=== PATIENT | female | born 1960 | race Caucasian/White ===

== ENCOUNTER 2019-01-05 14:18 | Emergency (ER) | payer MEDICAID ==
[2019-01-05] MEDS ORDERED: Ondansetron 4 MG/2 ML SDV IVPUSH ONE (14:56)
[2019-01-05] MEDS ORDERED: Sodium Chloride 0.9% 10 ML Syringe FLUSH PRN (14:56)
[2019-01-05] MEDS ORDERED: Sodium Chloride 0.9% 1,000 ML IV SCH (15:00)
--- NOTE | 2019-01-05 15:37 | CT ---
Head CT Technique: Multiple axial sections through the brain were obtained. Intravenous contrast was not utilized. Comparison: No prior intracranial imaging. Findings: Ventricles along with basal cisterns and sulci over the convexities are within normal limits for the patient's age. No abnormal parenchymal densities are seen. No evidence of intracranial hemorrhage. No midline shift or mass effect is seen. Bone window settings were reviewed which show no acute calvarial abnormality. Mucosal thickening is seen within the maxillary sinuses with air-fluid level suggesting possibility of acute sinusitis. Impression: 1. Possible acute sinusitis within the maxillary sinuses. 2. No acute intracranial abnormality is appreciated. Diagnostic code #3
--- NOTE | 2019-01-05 15:41 | MR ---
MR angiogram Technique: MR angiogram study was obtained centered to the [place]. Multiple MIP images were obtained in multiple projections. Findings: Distal internal carotid arteries are patent. Basilar artery is patent. Normal appearance of the middle cerebral arteries, anterior cerebral arteries and posterior cerebral arteries are seen. No focal occlusion or focal narrowing is seen. No aneurysm is identified. Impression: 1. No abnormality is appreciated on MR angiogram of the brain centered to the [place]. Diagnostic code #1
--- NOTE | 2019-01-05 15:43 | MR ---
MRI brain Technique: T1 sagittal; T2, T2 FLAIR, T1 and diffusion axial Comparison: Prior head CT study performed earlier on same day (2:54 PM). Findings: Ventricles along with basal cisterns and sulci over the convexities are within normal limits. Paranasal sinus disease is again noted within both maxillary sinuses as described on head CT exam. Small areas of increased signal scattered within subcortical white matter most likely due to minimal small vessel ischemic demyelination change. No other abnormal signal is seen within the brain parenchyma. No midline shift or mass effect is seen. No acute diffusion abnormalities are seen. Impression: 1. Probable mild small vessel ischemic demyelination change. 2. No acute diffusion abnormalities are seen. 3. Paranasal sinus disease is again noted. Diagnostic code #2
[2019-01-05] MEDS ORDERED: methylPREDNISolone Sodium Succinate 125 MG/2 ML SDV IVPUSH ONE (16:30)
[2019-01-05] MEDS ORDERED: Meclizine 12.5 MG Tab PO ONE (16:32)
--- NOTE | 2019-01-05 16:46 | EDM.PDOC ---
ED HPI GENERAL MEDICAL PROBLEM - General Chief Complaint: Respiratory Problem Stated Complaint: HIGH FEVER,VOMITING,DIZZY Time Seen by Provider: 01/05/19 14:37 Source of Information: Reports: Patient, Family, RN Notes Reviewed (Daughter) - History of Present Illness INITIAL COMMENTS - FREE TEXT/NARRATIVE: 58-year-old female has been brought in by daughter with severe vertigo, nausea and possible speech difficulty. This all started about 11:30 AM today for about 3 hours prior to arrival. She has been ill for the past couple of weeks with progressive cough. Cough initially was nonproductive and over the past week or so has become productive of yellowish green phlegm. She does have some mild nasal and sinus congestion. She also today does have headache. No major neck discomfort at this time. She is not aware of fever or chills. After the vertigo hit she did walk to the bathroom, became very nauseated and then became lightheaded, more dizzy and "sweaty". Her daughter states that her speech also became "slurred and different from baseline". She has not had any word finding difficulty. Also there is been no focal weakness. His called as a stroke alert on patient arrival to ED due to above mentioned symptoms and uncertainty of etiology. She does have history of a lot of back problems with multiple prior back surgeries, history of "back infection". She does not have history of diabetes, hypertension, coronary disease or previous stroke or TIA. Last known time of normal wellness 11:30 about 3 hours [employer]. - Related Data Allergies Allergy/AdvReac Type Severity Reaction Status Date / Time acetaminophen [From Percocet] Allergy Swelling Verified 01/05/19 16:20 cefazolin [From Ancef] Allergy Rash Verified 01/05/19 16:20 metronidazole [From Flagyl] Allergy Nausea Verified 01/05/19 16:20 oxycodone [From Percocet] Allergy Swelling Verified 01/05/19 16:20 Home Meds: Home Meds Acyclovir 200 mg PO BID 01/05/19 [History] Cyclobenzaprine [Flexeril] 10 mg PO TID 01/05/19 [History] Denosumab [Prolia] 1 injection IM ASDIRECTED 01/05/19 [History] Doxycycline [Vibramycin] 100 mg PO BID #14 tab 01/05/19 [Rx] Gabapentin [Neurontin] 800 mg PO TID 01/05/19 [History] Past Medical History HEENT History: Reports: Impaired Vision Other HEENT History: reading glasses Cardiovascular History: Reports: High Cholesterol [employer] History: Reports: Psychiatric History: Reports: Depression - Infectious Disease History Infectious Disease History: Reports: Hepatitis C - Past Surgical History HEENT Surgical History: Reports: Adenoidectomy Neurological Surgical History: Reports: Spinal Fusion Other Neurological Surgeries/Procedures: C4-S1 Social & Family History - Tobacco Use Smoking Status *Q: Former Smoker Used Tobacco, but Quit: Yes Month/Year Tobacco Last Used: a couple weeks ago quit - Caffeine Use Caffeine Use: Reports: Soda, Tea - Recreational Drug Use Recreational Drug Use: No ED ROS GENERAL - Review of Systems Review Of Systems: See Below Constitutional: Reports: Diaphoresis. Denies: Fever, Chills HEENT: Reports: Rhinitis (mild), Sinus Problem (she has had sinus congestion for several weeks and drainage). Denies: Throat Pain Respiratory: Denies: Shortness of Breath, Pleuritic Chest Pain Cardiovascular: Denies: Chest Pain GI/Abdominal: Reports: Nausea, Vomiting. Denies: Abdominal Pain Musculoskeletal: Reports: Neck Pain (mild chronic), Back Pain (chronic). Denies : Shoulder Pain, Arm Pain Skin: Denies: Rash Neurological: Reports: Trouble Speaking (daughter states speech is mildly slurred and "slower than usual"). Denies: Numbness, Tingling, Weakness ED EXAM, GENERAL - Physical Exam Exam: See Below General Appearance: Alert, Anxious (mild) Eye Exam: Bilateral Eye: PERRL, Other (very mild horizontal nystagmus) Ears: Normal External Exam, Normal Canal, Normal TMs Nose: Normal Inspection Throat/Mouth: Normal Inspection, Normal Oropharynx Head: Atraumatic. No: Facial Swelling Neck: Supple, Non-Tender Respiratory/Chest: No Respiratory Distress, Lungs Clear, Normal Breath Sounds Cardiovascular: Regular Rate, Rhythm GI/Abdominal: Soft, Non-Tender Back Exam: No: CVA Tenderness (L), CVA Tenderness (R) Extremities: Normal Inspection, Normal Range of Motion, Non-Tender Neurological: Alert, Oriented, No Motor/Sensory Deficits, Other (no facial droop , speech is mild slow but words are articulate and appropriate) Skin Exam: Warm, Dry, Normal Color, No Rash EKG INTERPRETATION EKG Date: 01/05/19 Rhythm: NSR [place]: Normal P-Wave: Present QRS: Normal ST-T: Normal Course - Vital Signs Last Recorded V/S: Last Vital Signs Temp 96.7 F 01/05/19 14:31 Pulse 63 01/05/19 14:31 Resp 18 01/05/19 14:31 BP 142/79 H 01/05/19 14:31 Pulse Ox 97 01/05/19 14:31 - Orders/Labs/Meds Orders: Active Orders 24 hr Category Date Time Status EKG 12 Lead [EKG Documentation Completion] [RC] STAT Care 01/05/19 14:55 Active Peripheral IV Care [RC] . DIRECTED Care 01/05/19 14:56 Active Peripheral IV Insertion Adult [OM.PC] Stat Oth 01/05/19 14:56 Ordered Labs: Laboratory Tests 01/05/19 01/05/19 01/05/19 Range/Units 14:40 14:55 14:55 WBC 11.58 H (3.98-10.04) K/mm3 RBC 4.75 (3.98-5.22) M/mm3 Hgb 13.9 (11.2-15.7) gm/dl Hct 42.6 (34.1-44.9) % MCV 89.7 (79.4-94.8) fl MCH 29.3 (25.6-32.2) pg MCHC 32.6 (32.2-35.5) g/dl RDW Std Deviation 51.6 H (36.4-46.3) fL Plt Count 270 (182-369) K/mm3 MPV 9.8 (9.4-12.3) fl Neut % (Auto) 81.7 H (34.0-71.1) % Lymph % (Auto) 9.8 L (19.3-51.7) % [place] % (Auto) 6.8 (4.7-12.5) % Eos % (Auto) 1.1 (0.7-5.8) Baso % (Auto) 0.3 (0.1-1.2) % Neut # (Auto) 9.47 H (1.56-6.13) K/mm3 Lymph # (Auto) 1.13 L (1.18-3.74) K/mm3 [place]enson # (Auto) 0.79 H (0.24-0.36) K/mm3 Eos # (Auto) 0.13 (0.04-0.36) K/mm3 Baso # (Auto) 0.03 (0.01-0.08) K/mm3 Manual Slide Review Abnormal smear Sodium 142 (136-145) mEq/L Potassium 3.8 (3.5-5.1) mEq/L Chloride 104 (98-107) mEq/L Carbon Dioxide 29 (21-32) mEq/L Anion Gap 12.8 (5-15) BUN 10 (7-18) mg/dL Creatinine 0.7 (0.55-1.02) mg/dL Est Cr Clr Drug Dosing 74.92 mL/min Estimated GFR (MDRD) > 60 (>60) mL/min BUN/Creatinine Ratio 14.3 (14-18) Glucose 97 (74-106) mg/dL POC Glucose 86 (70-105) mg/dL Calcium 9.6 (8.5-10.1) mg/dL Total Bilirubin 0.3 (0.2-1.0) mg/dL AST 18 (15-37) U/L ALT 21 (14-59) U/L Alkaline Phosphatase 100 (46-116) U/L Total Protein 8.1 (6.4-8.2) g/dl Albumin 3.8 (3.4-5.0) g/dl Globulin 4.3 gm/dL Albumin/Globulin Ratio 0.9 L (1-2) Meds: Medications Discontinued Medications Generic Name Dose Route Start Last Admin Trade Name Freq PRN Reason Stop Dose Admin Doxycycline Hyclate 100 mg 01/05/19 17:51 01/05/19 18:17 Vibramycin PO 01/05/19 17:52 100 mg ONETIME ONE Administration Sodium Chloride 1,000 mls @ 999 mls/hr 01/05/19 15:00 01/05/19 15:49 Normal Saline IV 999 mls/hr ONETIME HERIBERTO Administration Meclizine HCl 12.5 mg 01/05/19 16:32 01/05/19 16:41 Antivert PO 01/05/19 16:33 12.5 mg ONETIME ONE Administration Methylprednisolone Sodium Succinate 125 mg 01/05/19 16:30 01/05/19 16:42 Solu-Medrol IVPUSH 01/05/19 16:31 125 mg ONETIME ONE Administration Ondansetron HCl 4 mg 01/05/19 14:56 01/05/19 15:51 Zofran IVPUSH 01/05/19 14:57 4 mg ONETIME ONE Administration Sodium Chloride 10 ml 01/05/19 14:56 01/05/19 15:57 Saline Flush FLUSH 10 ml ASDIRECTED PRN Administration Keep Vein Open - Re-Assessments/Exams Free Text/Narrative Re-Assessment/Exam: 01/05/19 17:[address] head CT almost immediately after patient arrival. On the monitor that looked negative. At that point it was about 2:50. We did check on MRI availability and it was agreed that MRI without contrast could be done very quickly if we were okay with that. Her MRI of the head and MR angiogram was done. This did not show any sign of ischemic stroke or other acute pathology. See radiology reports for details. Patient was given Zofran initially for the nausea vomiting. This was followed up with Solu-Medrol 125 mg IV, Antivert 12.5 mg IV. Chest x-ray has been done and that also is normal, no evidence for pneumonia. White blood count did come back mildly elevated 11,600, her speech has improved from arrival. She likely does have bronchitis and secondary labyrinthitis from her underlying upper respiratory infection. Neuro exam continued to show no acute findings. No evidence for cererbellar stroke. Speech back to normal at time of discharge. Discharge instr. as documented. Departure - Departure Time of Disposition: 17:54 Disposition: Home, Self-Care 01 Condition: Fair Clinical Impression: Near syncope, Bronchitis Sinusitis Qualifiers: Sinusitis location: maxillary Chronicity: unspecified Qualified Code(s): J32.0 - Chronic maxillary sinusitis Labyrinthitis Qualifiers: Laterality: unspecified laterality Qualified Code(s): H83.09 - Labyrinthitis, unspecified ear - Discharge Information Prescriptions: Doxycycline [Vibramycin] 100 mg PO BID #14 tab Instructions: Sinusitis, Adult, Syncope Referrals: David Street MD [Primary Care Provider] - Forms: ED Department Discharge Additional Instructions: Vaporizer or steam as needed, decongestant such as Sudafed available OTC 2-3 times daily for nasal and sinus congestion, Antivert 12.5 mg or one half of a 25 mg tab 2-3 times daily for vertigo type dizziness, that is available OTC although you will have to ask the pharmacist for that. Doxycycline 100 mg twice daily for 1 week. Moves slowly and carefully. Drink plenty of water to maintain hydration. Return to clinic if not much better within 4-5 days as expected, return to ED as needed if symptoms worsening in any way. - My Orders Last 24 Hours: My Active Orders 01/05/19 14:55 EKG 12 Lead [EKG Documentation Completion] [RC] STAT 01/05/19 14:56 Peripheral IV Care [RC] . DIRECTED Peripheral IV Insertion Adult [OM.PC] Stat - Assessment/Plan Last 24 Hours: My Active Orders 01/05/19 14:55 EKG 12 Lead [EKG Documentation Completion] [RC] STAT 01/05/19 14:56 Peripheral IV Care [RC] . DIRECTED Peripheral IV Insertion Adult [OM.PC] Stat
--- NOTE | 2019-01-05 17:15 | CR ---
Chest: Portable view of the chest was obtained. Comparison: No prior chest x-ray is available. Extensive spinal hardware is seen. Heart size and mediastinum are within normal limits. Lungs are clear with no acute parenchymal change. Bony structures show nothing acute. Impression: 1. Nothing acute is appreciated on portable chest x-ray. Diagnostic code #2
[2019-01-05] MEDS ORDERED: Doxycycline 100 MG Cap PO ONE (17:51)
== END 2019-01-05 18:42 | disposition home or self-care (01) ==
LOC: JD.ED 14:18
DX: J40 Bronchitis, not specified as acute or chronic (principal); J32.0 Chronic maxillary sinusitis; H83.09 Labyrinthitis, unspecified ear; R55 Syncope and collapse; Z88.6 Allergy status to analgesic agent; Z88.1 Allergy status to other antibiotic agents; Z88.5 Allergy status to narcotic agent; Z87.891 Personal history of nicotine dependence
CPT/HCPCS: 36415; 70450; 70544; 70551; 71045; 80053; 82962; 85025; 93005; 96361; 96374; 96375; 99284; A9270; J2405; J2930; J7040; 93010